=== PATIENT | female | born 1990 | race Two or more races ===

== ENCOUNTER 2022-04-10 15:10 | Emergency (ER) | payer SELFPAY ==
[2022-04-10] MEDS ORDERED: Lidocaine 1% w/Epinephrine 1:100K 20 ML VIAL ONE (15:52)
[2022-04-10] MEDS ORDERED: Bacitracin 1 PK ONE (15:54)
[2022-04-10] MEDS ORDERED: Boostrix 0.5 ML (Tdap) VIAL ONE (15:54)
== END 2022-04-10 16:40 | disposition home or self-care (01) ==
LOC: BURERS 15:10
DX: L02.31 Cutaneous abscess of buttock (principal); L03.317 Cellulitis of buttock; F17.210 Nicotine dependence, cigarettes, uncomplicated; J45.909 Unspecified asthma, uncomplicated; Z79.51 Long term (current) use of inhaled steroids; Z23 Encounter for immunization
CPT/HCPCS: 10060; 90471; 90715